=== PATIENT | male | born 1935 | race Caucasian/White ===

== ENCOUNTER 2020-07-23 19:25 | Inpatient (IN) | payer OTHER, MEDICARE ==
[~2020-07-23] VITALS: Ht 177.8 cm; Wt 80.1 kg
[2020-07-23 19:59] LABS: BASOPHILS ABSOLUTE AUTO 0.04 K/mm3 (0.00-0.23); BASOPHILS PERCENT AUTO 0 % (0-2); EOSINOPHILS ABSOLUTE AUTO 0.01 K/mm3 (0.00-0.68); EOSINOPHILS PERCENT AUTO 0 % (0-6); Hematocrit 39.2 % (37.0-53.0); Hemoglobin 13.3 g/dL (13.5-17.5); IMMATURE GRAN ABSOLUTE AUTO 0.08 K/mm3 (0.00-0.10); IMMATURE GRAN PERCENT AUTO 1 % (0-1); LYMPHOCYTES ABSOLUTE AUTO 1.66 K/mm3 (0.84-5.20); LYMPHOCYTES PERCENT AUTO 13 % (21-46); MONOCYTES ABSOLUTE AUTO 0.62 K/mm3 (0.16-1.47); MONOCYTES PERCENT AUTO 5 % (4-13); Mean Corpuscular HGB 33.1 pg (26.0-34.0); Mean Corpuscular HGB Conc 33.9 g/dL (31.5-36.5); Mean Corpuscular Volume 98 fL (80-100); Mean Platelet Volume 10.2 fL (9.1-12.4); NEUTROPHILS ABSOLUTE AUTO 10.04 K/mm3 (1.96-9.15); NEUTROPHILS PERCENT AUTO 81 % (41-73); Platelet Count 181 K/mm3 (150-400); RDW Coefficient Variation 13.2 % (11.7-14.2); RDW Standard Deviation 47.4 fL (35.1-46.3); Red Blood Cell Count 4.02 M/mm3 (4.30-5.90); White Blood Cell Count 12.45 K/mm3 (4.00-11.30)
[2020-07-23 20:16] LABS: Albumin, Blood 3.7 g/dL (3.4-5.0); Albumin/Globulin Ratio 1.2 (0.8-1.8); Bilirubin, Total 0.6 mg/dL (0.1-1.0); Bun/Creatinine Ratio 20.6 (12.0-20.0); Calcium, Blood 9.1 mg/dL (8.5-10.1); Creatinine, Blood 1.26 mg/dL (0.60-1.20); Globulin, Blood 3.2 g/dL (2.2-4.0); Potassium, Blood 4.1 mmol/L (3.5-5.5); Total Protein, Blood 6.9 g/dL (6.4-8.2)
[2020-07-23 20:29] LABS: Troponin I 33.9 ng/mL (0.000-0.040)
[2020-07-23] MEDS ORDERED: ALBU90OI INH (21:06)
[2020-07-23] MEDS ORDERED: FERSU300 PO (21:07)
[2020-07-23] MEDS ORDERED: SYMBICORT 160-4.6 GM INH (21:07)
[2020-07-23] MEDS ORDERED: FINA5 PO (21:08)
[2020-07-23] MEDS ORDERED: FISH OIL 1,2001 EAC7 PO (21:08)
[2020-07-23] MEDS ORDERED: HYDCHL12.5 PO (21:09)
[2020-07-23] MEDS ORDERED: LOSA25 PO (21:09)
[2020-07-23] MEDS ORDERED: EUTHYROX50 MCG PO (21:09)
[2020-07-23 21:10] LABS: International Normalized Ratio 1.01; Prothrombin Time Results 10.8 Sec (9.7-11.5)
[2020-07-23] MEDS ORDERED: Hytrin2 MG PO (21:10)
[2020-07-23] MEDS ORDERED: Hair, Skin & N1 EACH PO (21:10)
[2020-07-23] MEDS ORDERED: Glucophage 850850 MG PO (21:10)
[2020-07-23] MEDS ORDERED: Aspir 8181 MG PO (21:11)
[2020-07-23 23:09] LABS: Influenza A, PCR NEGATIVE (NEGATIVE); Influenza B, PCR NEGATIVE (NEGATIVE); Resp Syncytial Virus, PCR NEGATIVE (NEGATIVE); SARS-Cov-2 (COVID-19) PCR, MMC NEGATIVE (NEGATIVE)
--- NOTE | 2020-07-23 23:45 | NUR ---
ASSUMED PT CARE FROM ED PT ARRIVED AT 2315. ALERT AND ORIENTED AND ABLE TO MAKE NEEDS KNOWN; VERY HARD OF HEARING. PT NOTED TO BE SINUS TACH WITH HR 100-110'S; ELEVATION NOTED IN LEADS V1 AND AVR; ALL OTHER LEADS ST DEPRESSION NOTED. SBP 90'S UPON ARRIVAL; THEREFORE, NITRO PASTE REMOVED FROM LEFT UPPER CHEST. LR INFUSING AT 100ML/HR. HEPARIN VERIFIED WITH SECOND NURSE AND STARTED PER ORDERS. LUNG SOUNDS VERY COARSE WITH CRACKLES NOTED; PT ALSO HAS AN AUDIBLE EXPIRATORY WHEEZE. CALL LIGHT WITHIN REACH; PT ABLE TO MAKE HIS NEEDS KNOWN. WILL CONTINUE TO MONITOR.
--- NOTE | 2020-07-24 00:32 | NUR ---
CALL OUT TO TECHNOLOGY INTERN, DR. EGAN UPDATED REGARDING PT'S SBP'S CONSISTENTLY IN THE 60'S. INFORMED HIM THAT THE NITRO PASTE WAS REMOVED UPON ADMIT TO ICU D/T SBP 90'S. NEW ORDERS FOR NS BOLUS OF 250CC AND TO START LEVOPHED GTT
[2020-07-24 03:37] LABS: BASOPHILS ABSOLUTE AUTO 0.03 K/mm3 (0.00-0.23); BASOPHILS PERCENT AUTO 0 % (0-2); EOSINOPHILS PERCENT AUTO 0 % (0-6); Hematocrit 37.9 % (37.0-53.0); Hemoglobin 12.6 g/dL (13.5-17.5); IMMATURE GRAN ABSOLUTE AUTO 0.06 K/mm3 (0.00-0.10); IMMATURE GRAN PERCENT AUTO 0 % (0-1); LYMPHOCYTES ABSOLUTE AUTO 1.56 K/mm3 (0.84-5.20); LYMPHOCYTES PERCENT AUTO 10 % (21-46); MONOCYTES ABSOLUTE AUTO 0.96 K/mm3 (0.16-1.47); MONOCYTES PERCENT AUTO 6 % (4-13); Mean Corpuscular HGB Conc 33.2 g/dL (31.5-36.5); Mean Corpuscular Volume 99 fL (80-100); NEUTROPHILS ABSOLUTE AUTO 13.05 K/mm3 (1.96-9.15); NEUTROPHILS PERCENT AUTO 83 % (41-73); Platelet Count 205 K/mm3 (150-400); RDW Coefficient Variation 13.3 % (11.7-14.2); RDW Standard Deviation 48.7 fL (35.1-46.3); Red Blood Cell Count 3.82 M/mm3 (4.30-5.90); White Blood Cell Count 15.66 K/mm3 (4.00-11.30)
[2020-07-24 04:11] LABS: Albumin, Blood 3.1 g/dL (3.4-5.0); Bilirubin, Total 0.7 mg/dL (0.1-1.0); Bun/Creatinine Ratio 21.8 (12.0-20.0); Calcium, Blood 8.2 mg/dL (8.5-10.1); Creatinine, Blood 1.42 mg/dL (0.60-1.20); Globulin, Blood 3.2 g/dL (2.2-4.0); Potassium, Blood 4.6 mmol/L (3.5-5.5); Total Protein, Blood 6.3 g/dL (6.4-8.2)
--- NOTE | 2020-07-24 05:08 | NUR ---
END OF SHIFT SUMMARY NO SIGNIFICANT CHANGES SINCE LAST ENTRY. PT REMAINS ON 2L VIA NC. HEPARIN AT 13 UNITS/KG/HR. LEVOPHED AT 5MCG/MIN PERIPHERALLY THROUGH 20G RIGHT OUTER AC WITH GOOD BLOOD RETURN. LR PLACED ON STANDBY D/T PT INCREASED WORK OF BREATHING, COARSE LUNG SOUNDS, AND AUDIBLE EXPIRATORY WHEEZE. PT HAS BEEN NSR TO SINUS TACHYCARDIA; HR HAS REMAINED AROUND 100'S. DENIES N/V AND CHEST PAIN; JUST STATES THAT THE DISCOMFORT IS NOTICEABLE TO MID CHEST; HOWEVER, IT DOES NOT RADIATE ANYWHERE. BP'S STABLE, SEE FLOWSHEET. PT HAS YET TO URINATE THIS SHIFT; BLADDER SCANNED WITH 184 NOTED IN BLADDER; WILL CONTINUE TO MONITOR AND PASS ALONG TO DAY RN. PT ABLE TO SHIFT OWN WEIGHT IN BED. CALL LIGHT WITHIN REACH; WILL CONTINUE TO MONITOR UNTIL REPORT IS HANDED OFF TO ONCOMING RN.
--- NOTE | 2020-07-24 06:51 | NUR ---
CHANGE OF STATUS PT'S WORK OF BREATHING INCREASED TO 30-40'S. PT VERY RESTLESS. PULLED OUT IV. DIAPHORETIC AND CLAMMY. CALLED DR. TAMAYO WHO GAVE ORDERS FOR BUMEX GTT AND BIPAP/CPAP. RT NOTIFIED.
--- NOTE | 2020-07-24 07:28 | NUR ---
CHANGE IN CONDITION DR. EGAN CALLED ASKING FOR AN UPDATE THIS MORNING. INFORMED HIM OF RECENT EVENTS AND LOSS OF PERIPHERAL IV; NEW ORDERS TO RESTART HEPARIN GTT SOON POSSIBLE, CALL DEVELOPER PROVER MECHANICAL TO PLACE PT ON THE SCHEDULE FOR 0900 STAT, AND TO OBTAIN A STAT ECHO. CHARGE NURSE NOTIFIED TO CALL REGARDING BOTH THOSE THINGS. DURING BEDSIDE REPORT PT'S SBP 138; THEREFORE, PLACED LEVOPHED ON STANDBY AND STARTED HEPARIN GTT BACK UP PER DR. EGAN'S ORDERS. PT WAS SITTING UP IN BED; ALERT AND TALKING. RT TO BEDSIDE TO PLACE BIPAP ON PT. 05/17; FIO2 40%; SHORTLY AFTER BIPAP PLACED ON PT BP'S DROPPED TO SYSTOLIC 38. STOPPED HEPARIN AGAIN, AND PLACED LEVOPHED AT 20MCG/MIN. ATTEMPTED TO RETAKE BP TWICE WITH MEAN READING ONLY. CHANGED OUT CUFF TO UPPER ARM AND RECEIVED A SBP 120'S. TITRATED LEVOPHED DOWN TO 10MCG/MIN. RESEARCH GENETICIST AT BEDSIDE TO PLACE PICC LINE. DR. EGAN AT BEDSIDE AND ORDERED LASIX 40MG IV NOW. REPORT HANDED OFF TO MIAH MOISE
--- NOTE | 2020-07-24 08:40 | NUR ---
ASSUMED CARE BEDSIDE REPORT FROM AVA DOOLEY. PT ON BIPAP 25/12 35%. LEVOPHED GTT INFUSING PIV FOR MAP >65. PT RESPONDS TO VERBAL [place]ULI. [place]. STATES HE IS FEELING BETTER c BIPAP IN PLACE. LUNGS c CRACKLES AND COARSE THROUGHOUT. RR 40'S AT SHIFT CHANGE, 20'S AT THIS TIME. DECREASED WOB. PT PALE, DIAPHORETIC/CLAMMY. WEAK PERIPHERAL PULSE. PT DENIES CHEST PAIN. PICC ATTEMPTED, POWERGLIDE PLACED TO RUE. HEPARIN GTT AT 13 UNITS/KG/MIN. LASIX 40 MG GIVEN, SU PLACED. DR EGAN, CARDIOLOGY AT BEDSIDE THIS AM, PLAN FOR STAT ECHO AND STAGECRAFT PROFESSOR AT 0900. DAUGHTER CALLED TO BEDSIDE. WILL CONTINUE TO MONITOR.
[2020-07-24 09:16] LABS: Source, Urine Catheter
--- NOTE | 2020-07-24 09:21 | NUR ---
PT TO CYCLE ANALYST.
[2020-07-24 09:26] LABS: Appearance, Urine Clear (Clear); Bilirubin, Urine Neg (Neg); Blood, Urine 3+ (Neg); Color, Urine Yellow (P-Yellow); Glucose Qualitative, Urine Neg (Neg); Ketones, Urine 1+ (Neg); Leukocyte Esterase, Urine Neg (Neg); Nitrite, Urine Neg (Neg); Protein, Urine 2+ (Neg); Specific Gravity, Urine 1.015 (1.003-1.022); Urobilinogen, Urine NORM (Normal)
[2020-07-24 10:03] LABS: Bacteria Rare /hpf; Calcium Oxalate Crystals Few /hpf; Squamous Epithelial Cells Rare /hpf (Few); White Blood Cells, Urine 0-2 /hpf (0-5)
--- NOTE | 2020-07-24 10:20 | NUR ---
PT BACK TO ROOM FROM WELDING SETTER. RIGHT GROIN ACCESSED IN LAB. CATHERINE AND OPSITE IN PLACE. SOFT, NO HEMATOMA OR ECCHYMOSIS NOTED. PT DENIES PAIN. NEEDS FREQUENT REMINDERS TO KEEP RIGHT LEG STRAIGHT. POTENTIAL TRANSFER. WILL CONTINUE TO MONITOR.
--- NOTE | 2020-07-24 12:53 | NUR ---
Echocardiogram performed by Dina Michelle under my supervision.
--- NOTE | 2020-07-24 13:52 | NUR ---
review of patient with staff plan is transfer to [place].
--- NOTE | 2020-07-24 17:34 | NUR ---
SHIFT SUMMARY PT PENDING TRANSFER TO [facility]. PT ACCEPTED BY CARDIOLOGY, AWAITING BED ASSIGNMENT. DAUGHTER KAVON REQUESTS TO BE NOTIFIED UPON TRANSFER. BIPAP REMOVED THIS AFTERNOON, 2L O2 VIA NC. TOLERATING WELL. LUNGS CLEAR, DIMINISHED IN BASES. LASIX GIVEN THIS SHIFT. RIGHT GROIN ARTERIAL ACCESS, CATHERINE, OPSITE, DRESSING C/D/I. SOFT, NON TENDER, NO ECCHYMOSIS NOTED. FEET COOL BILATERALLY. PT DENIES PAIN. DR EGAN D/C'D HEPARIN AND IVF THIS SHIFT, BUMEX DRIP HELD PER DR EGAN. SU PATENT, DRAINING TO GRAVITY. WILL CONTINUE TO MONITOR UNTIL REPORT TO ONCOMING NURSE.
--- NOTE | 2020-07-24 19:41 | NUR ---
ASSUMED CARE FROM MIAH MOISE AT 1915 PT LYING IN BED ON RIGHT SIDE, LEFT ARM ELEVATED. BP'S SHOWING SYSTOLIC 60-70'S; HAD PT TURN OVER ON BACK AND RETOOK BP WITH SYSTOLIC 85. BED GIVEN FOR [facility] TRANSFER. CALLED REPORT TO MIAH MARISCAL. TRANSPORT CREW CALLED AND STATED THEY WOULD BE HERE IN 20 MINUTES. CALLED DAUGHTER, KAVON TO INFORM HER OF TRANSFER; INFORMED DAVEY THAT KAVON IS THE PT'S SUPPORT PERSON D/T COMMUNICATION DEFICIT R/T HARD OF HEARING. PT HAS A LEFT FEMORAL ACCESS SITE FROM [facility]; PERCLOSE DEVICE USED; NEPUTUNE AND TEGADERM ARE BOTH CDI. NSR WITH HR 90'S. PT PLACED ON BIPAP TEMPORARILY TO HELP PREVENT FLUID BUILD UP IN LUNGS PRIOR TO TRANSPORT; BIPAP 05/20; FIO2 40%; BIOX 97%. PT WAS ON 2L VIA NC PRIOR TO BIPAP. LEVOPHED REMAINS ON STANDBY. PT IS SALINE LOCKED AT THIS TIME. PT APPEARS TO BE RESTING COMFORTABLY AT THIS TIME. WILL CONTINUE TO MONITOR UNTIL REPORT IS HANDED OFF TO TRANSPORT CREW.
--- NOTE | 2020-07-24 20:02 | NUR ---
[facility] TRANSPORT CREW LEFT FOR [facility] DAUGHTER HAS BEEN UPDATED.
== END 2020-07-24 20:00 | disposition short-term general hospital (02) | DRG 280 ==
LOC: ER 19:25 → ICUE 21:18 → ICUW 21:18 → ICUE 22:56
PROVIDERS: Emergency Medicine; Internal Medicine Interventional Cardiology; Nurse Practitioner Acute Care; Pharmacist; ADMIT Internal Medicine
PROC: 5A09357 Assistance with Respiratory Ventilation, Less than 24 Consecutive Hours, Continuous Positive Airway Pressure (ICD-10-PCS; 2020-07-23)
PROC: B2011ZZ Plain Radiography of Multiple Coronary Arteries using Low Osmolar Contrast (ICD-10-PCS; principal; 2020-07-24)
PROC: 05HY33Z Insertion of Infusion Device into Upper Vein, Percutaneous Approach (ICD-10-PCS; 2020-07-24)
PROC: 3E033XZ Introduction of Vasopressor into Peripheral Vein, Percutaneous Approach (ICD-10-PCS; 2020-07-24)
DX: I35.0 Nonrheumatic aortic (valve) stenosis (principal); I21.4 Non-ST elevation (NSTEMI) myocardial infarction; R57.0 Cardiogenic shock; E78.5 Hyperlipidemia, unspecified; J44.9 Chronic obstructive pulmonary disease, unspecified; Z20.822 Contact with and (suspected) exposure to COVID-19; Z87.891 Personal history of nicotine dependence; Z79.82 Long term (current) use of aspirin; Z79.84 Long term (current) use of oral hypoglycemic drugs; E11.51 Type 2 diabetes mellitus with diabetic peripheral angiopathy without gangrene; Z66 Do not resuscitate; E03.9 Hypothyroidism, unspecified; I49.3 Ventricular premature depolarization; I10 Essential (primary) hypertension
CPT/HCPCS: 0241U; 36415; 51702; 71046; 71250; 80053; 81001; 82947; 83690; 83880; 84484; 85025; 85610; 85730; 93005; 93010; 93306; 93454; 94660; 99152; 99153; 99285-25; A9270; C1751; C1760; C1769; C1894; J1644; J1940; J2405; J3010; J7030; J7050; J7060; J7120; Q9967